=== PATIENT | male | born 1950 | race Caucasian/White ===

== ENCOUNTER 2019-05-10 21:16 | Emergency (ER) | payer MEDICARE ==
[~2019-05-10] VITALS: Ht 177.8 cm; Wt 110.7 kg
--- NOTE | 2019-05-10 22:20 | NUR ---
SEEN AND EXAMINED BY
--- NOTE | 2019-05-10 23:13 | NUR ---
Patient discharged to home in stable condition. Written and verbal after care instructions given. Patient verbalizes understanding of instruction. ambulatory with a steady gait
[2019-05-10 23:14] VITALS: BP 134/76
== END 2019-05-10 23:14 | disposition home or self-care (01) ==
LOC: ER 21:26
DX: K11.20 Sialoadenitis, unspecified (principal); E11.9 Type 2 diabetes mellitus without complications